=== PATIENT | male | born 1980 | race Caucasian/White ===

== ENCOUNTER 2016-05-31 11:53 | Emergency (ER) | payer OTHER ==
[~2016-05-31] VITALS: Ht 182.9 cm; Wt 115.5 kg
[2016-05-31 11:57] VITALS: Ht 182.9 cm; Wt 115.5 kg
--- NOTE | 2016-05-31 12:59 | ERD ---
ER Documentation Chief Complaint Date/Time DATE: 05/31/16 TIME: 12:57 Chief Complaint right shoulder pain/mid upper back pain since tuesday; HPI 36-year-old transvestite woman presents with right posterior mid back pain and shoulder pain after fall off of a 6 foot height about 3 days ago. He was seen and evaluated at [facility] emergency department, workup was unremarkable, and patient was discharged with a prescription for meloxicam to use daily. He denies using his analgesic today, denies cough, no fevers or chills, no chest pain, no headache or blurry vision. Patient denies paresis or paresthesias. Patient states pain to the right side is worse with movement of his right upper extremity. ROS All systems reviewed and are negative except as per history of present illness. PMhx/Soc Smoking Status: Never smoker FmHx Family History: No diabetes Physical Exam Vitals Vital Signs Date Time Temp Pulse Resp B/P Pulse Ox O2 Delivery O2 Flow Rate FiO2 05/31/16 11:57 97.8 85 18 133/88 97 Physical Exam GENERAL: Well-developed, well-nourished, well-hydrated, in no apparent distress , looks nontoxic in appearance HEENT: Moist mucous membranes, pink conjunctiva, no cervical spine tenderness or step-off deformities, no goiter, no jaundice or icterus, extraocular movements intact without pain. No submandibular induration, and no pharyngeal erythema NEURO: Alert and oriented 3, cranial nerves II through XII intact bilaterally, pupils equal round reactive to light, no focal deficits or facial asymmetry, sensation intact distally Strength 5/5 in upper and lower extremities bilaterally CARDIAC: Regular rate and rhythm, no murmurs rubs or gallops LUNGS: Clear bilaterally no wheezing crackles or stridor ABDOMEN: Soft nontender, no guarding, no rigidity, no rebound, no psoas sign no obturator sign. Normoactive bowel sounds SKIN: Warm and dry to touch, no abrasions, contusions, or hematomas, no lacerations, no ecchymosis, no target lesions, and without ulcers EXTREMITIES: No clubbing cyanosis or edema, calves are bilaterally symmetrical, no Homans sign, no popliteal cord sign. Distal pulses equal and bilateral. Mild soft tissue tenderness to touch over the parathoracic back on the right side, no midline tenderness or deformity. PSYCH: Normal affect without agitation or irritability Procedures/MDM I offered analgesics although patient refused. I placed his right upper extremity in a sling with the elbow at 90. Splint Assessment: Neurovascularly intact post splint placement with good fit. Patient feels much better at this time, and vital signs are normal, symptoms have improved. I did give strict instructions to return to the ED if symptoms continue or worsen, patient will otherwise follow-up with primary care physician. Patient understood instructions and agreed to plan. Departure Diagnosis: Primary Impression: Shoulder strain Encounter type: initial encounter Laterality: right Qualified Code: S46.911A - Shoulder strain, right, initial encounter Condition: Good Patient Instructions: Shoulder Sprain , Work Release Form HARRIET FIELDS MD May 31, 2016 12:59
== END 2016-05-31 13:13 | disposition home or self-care (01) ==
LOC: FTE 11:53
DX: S46.911A Strain of unspecified muscle, fascia and tendon at shoulder and upper arm level, right arm, initial encounter (principal); W17.89XA Other fall from one level to another, initial encounter; Y92.9 Unspecified place or not applicable
CPT/HCPCS: 99282